=== PATIENT | male | born 1985 | race Caucasian/White ===

== ENCOUNTER 2017-07-04 23:55 | Emergency (ER) | payer OTHER ==
[~2017-07-04] VITALS: Ht 185.4 cm; Wt 68.0 kg
[2017-07-05 00:05] VITALS: BP 119/77; PULSE 55; RESP 16; TEMP 98.2; O2SAT 53; O2SAT 98
--- NOTE | 2017-07-05 00:17 | PD ---
HPI Chief Complaint: Psychiatric Symptoms Time Seen by Provider: 00:16 Travel History International Travel<30 days: No Contact w/Intl Traveler<30days: No Traveled to known affect area: No History of Present Illness HPI 31-year-old male presents emergency department under Ramirez act for psychiatric evaluation. Patient states he has had worsening depression. He has a plan to hang himself like his father did per his report. Reports polysubstance abuse. Denies any acute medical needs. He has no other symptoms to report. [facility] Past Medical History Medical History: Denies Significant Hx Diabetes: No Diminished Hearing: No Influenza Vaccination: Yes Past Surgical History Surgical History: No Previous Surgery Social History Alcohol Use: Yes (OCC) Tobacco Use: Yes (1 PK DAILY) Substance Use: Yes (HEROIN) Allergies-Medications (Allergen,Severity, Reaction): Coded Allergies: No Known Allergies (Verified Allergy, Unknown, 07/05/17) Reported Meds & Prescriptions Reported Meds & Active Scripts Active No Active Prescriptions or Reported Medications Review of Systems Except as stated in HPI: all other systems reviewed are Neg Physical Exam Narrative GENERAL: Thin male patient, tearful but in no acute distress. SKIN: Focused skin assessment warm/dry. HEAD: Atraumatic. Normocephalic. EYES: Pupils equal and round. No scleral icterus. No injection or drainage. ENT: No nasal bleeding or discharge. Mucous membranes pink and moist. NECK: Trachea midline. No JVD. CARDIOVASCULAR: Regular rate and rhythm. No murmur appreciated. RESPIRATORY: No accessory muscle use. Clear to auscultation. Breath sounds equal bilaterally. GASTROINTESTINAL: Abdomen soft, non-tender, nondistended. Hepatic and splenic margins not palpable. MUSCULOSKELETAL: No obvious deformities. No clubbing. No cyanosis. No edema. NEUROLOGICAL: Awake and alert. No obvious cranial nerve deficits. Motor grossly within normal limits. Normal speech. PSYCHIATRIC: Appropriate mood and affect; insight and judgment normal. Data Data Last Documented VS Vital Signs Date Time Temp Pulse Resp B/P (MAP) Pulse Ox O2 Delivery O2 Flow Rate FiO2 07/05/17 04:36 97.6 59 16 127/64 (85) 100 Orders Orders Complete Blood Count With Diff (07/05/17 00:14) Psych Screen (07/05/17 00:14) Drug Screen, Random Urine (07/05/17 00:14) Alcohol (Ethanol) (07/05/17 00:14) Salicylates (Aspirin) (07/05/17 00:14) Tylenol (Acetaminophen) (07/05/17 00:14) Basic Metabolic Panel (Bmp) (07/05/17 00:14) Diet Regular Basic (07/05/17 Breakfast) Labs Laboratory Tests Test 07/05/17 00:10 White Blood Count 7.6 TH/MM3 Red Blood Count 4.73 MIL/MM3 Hemoglobin 13.8 GM/DL Hematocrit 40.9 % Mean Corpuscular Volume 86.4 FL Mean Corpuscular Hemoglobin 29.1 PG Mean Corpuscular Hemoglobin Concent 33.6 % Red Cell Distribution Width 13.3 % Platelet Count 372 TH/MM3 Mean Platelet Volume 7.4 FL Neutrophils (%) (Auto) 68.3 % Lymphocytes (%) (Auto) 22.5 % Monocytes (%) (Auto) 6.6 % Eosinophils (%) (Auto) 2.2 % Basophils (%) (Auto) 0.4 % Neutrophils # (Auto) 5.2 TH/MM3 Lymphocytes # (Auto) 1.7 TH/MM3 Monocytes # (Auto) 0.5 TH/MM3 Eosinophils # (Auto) 0.2 TH/MM3 Basophils # (Auto) 0.0 TH/MM3 CBC Comment DIFF FINAL Differential Comment Blood Urea Nitrogen 22 MG/DL Creatinine 0.82 MG/DL Random Glucose 92 MG/DL Calcium Level 8.9 MG/DL Sodium Level 144 MEQ/L Potassium Level 4.0 MEQ/L Chloride Level 107 MEQ/L Carbon Dioxide Level 31.5 MEQ/L Anion Gap 6 MEQ/L Estimat Glomerular Filtration Rate 109 ML/MIN Salicylates Level 3.3 MG/DL Urine Opiates Screen NEG Acetaminophen Level LESS THAN 2.0 MCG/ML Urine Barbiturates Screen NEG Urine Amphetamines Screen POS Urine Benzodiazepines Screen POS Urine Cocaine Screen NEG Urine Cannabinoids Screen NEG Ethyl Alcohol Level LESS THAN 3 MG/DL MDM Medical Decision Making Medical Screen Exam Complete: Yes Emergency Medical Condition: Yes Medical Record Reviewed: Yes Differential Diagnosis Mood disorder versus personality disorder versus substance abuse versus adjustment reaction Narrative Course 31-year-old male presents emergency department under Ramirez act for psychiatric evaluation. Patient appears without distress. He is cheerful. Vital signs are stable. Lab work is reviewed and without acute concern. Patient is medically cleared to undergo psychiatric screening for further evaluation and disposition. Laboratory Tests Test 07/05/17 00:10 White Blood Count 7.6 TH/MM3 Red Blood Count 4.73 MIL/MM3 Hemoglobin 13.8 GM/DL Hematocrit 40.9 % Mean Corpuscular Volume 86.4 FL Mean Corpuscular Hemoglobin 29.1 PG Mean Corpuscular Hemoglobin Concent 33.6 % Red Cell Distribution Width 13.3 % Platelet Count 372 TH/MM3 Mean Platelet Volume 7.4 FL Neutrophils (%) (Auto) 68.3 % Lymphocytes (%) (Auto) 22.5 % Monocytes (%) (Auto) 6.6 % Eosinophils (%) (Auto) 2.2 % Basophils (%) (Auto) 0.4 % Neutrophils # (Auto) 5.2 TH/MM3 Lymphocytes # (Auto) 1.7 TH/MM3 Monocytes # (Auto) 0.5 TH/MM3 Eosinophils # (Auto) 0.2 TH/MM3 Basophils # (Auto) 0.0 TH/MM3 CBC Comment DIFF FINAL Differential Comment Blood Urea Nitrogen 22 MG/DL Creatinine 0.82 MG/DL Random Glucose 92 MG/DL Calcium Level 8.9 MG/DL Sodium Level 144 MEQ/L Potassium Level 4.0 MEQ/L Chloride Level 107 MEQ/L Carbon Dioxide Level 31.5 MEQ/L Anion Gap 6 MEQ/L Estimat Glomerular Filtration Rate 109 ML/MIN Salicylates Level 3.3 MG/DL Urine Opiates Screen NEG Acetaminophen Level LESS THAN 2.0 MCG/ML Urine Barbiturates Screen NEG Urine Amphetamines Screen POS Urine Benzodiazepines Screen POS Urine Cocaine Screen NEG Urine Cannabinoids Screen NEG Ethyl Alcohol Level LESS THAN 3 MG/DL Diagnosis Primary Impression: Adjustment reaction Qualified Codes: F43.23 - Adjustment disorder with mixed anxiety and depressed mood Additional Impression: Polysubstance abuse Scripts No Active Prescriptions or Reported Meds Condition: Stable Cate Ortega Jul 05, 2017 00:17
[2017-07-05 00:36] LABS: AUTOMATED NEUTROPHIL # 5.2 TH/MM3 (1.8-7.7); BASOPHIL % 0.4 % (0.0-2.0); EOSINOPHIL # 0.2 TH/MM3 (0-0.4); EOSINOPHIL % 2.2 % (0.0-4.0); HEMATOCRIT 40.9 % (39.0-51.0); HEMOGLOBIN 13.8 GM/DL (13.0-17.0); LYMPH % 22.5 % (9.0-44.0); LYMPHOCYTE # 1.7 TH/MM3 (1.0-4.8); MEAN CELL VOLUME 86.4 FL (80.0-100.0); MEAN CORPUSCULAR HEMOGLOBIN 29.1 PG (27.0-34.0); MEAN CORPUSCULAR HGB CONC 33.6 % (32.0-36.0); MEAN PLATELET VOLUME 7.4 FL (7.0-11.0); MONO % 6.6 % (0.0-8.0); MONOCYTE # 0.5 TH/MM3 (0-0.9); NEUT % 68.3 % (16.0-70.0); PLATELET COUNT 372 TH/MM3 (150-450); RED BLOOD COUNT 4.73 MIL/MM3 (4.50-5.90); RED CELL DISTRIBUTION WIDTH 13.3 % (11.6-17.2); WHITE BLOOD COUNT 7.6 TH/MM3 (4.0-11.0)
[2017-07-05 00:51] LABS: BICARBONATE 31.5 MEQ/L (21.0-32.0); BLOOD UREA NITROGEN 22 MG/DL (7-18); CALCIUM 8.9 MG/DL (8.5-10.1); CHLORIDE 107 MEQ/L (98-107); CREATININE 0.82 MG/DL (0.60-1.30); GLOMERULAR FILTRATION RATE 109 ML/MIN (>89); GLUCOSE,RANDOM 92 MG/DL (74-106); SODIUM (NA) 144 MEQ/L (136-145)
[2017-07-05 01:00] LABS: ACETAMINOPHEN LESS THAN 2.0 MCG/ML (10.0-30.0)
[2017-07-05 04:36] VITALS: BP 127/64; PULSE 59; RESP 16; TEMP 97.6; O2SAT 100
[2017-07-05 10:27] VITALS: BP 106/61; PULSE 89; RESP 16; TEMP 98.6; O2SAT 100
--- NOTE | 2017-07-05 17:51 | PD.PSY.CON ---
Provisional Diagnosis Admission Date Date of consultation 07/05/2017 [place] I. 1. Polysubstance abuse [place] II. Deferred History of Present Illness Service Psychiatry Consult Requested By Emergency department Reason for Consult Ramirez act Primary Care Physician No Primary Care Physician HPI Mr. Kilgore is a 31-year-old male with a reported history of substance use issues who presents under a Ramirez act by law enforcement alleging that the patient stated that he wanted to kill himself. Of note, the patient's urine toxicology was positive for amphetamines and benzodiazepines on presentation here. Reviewing the electronic medical record, it appears this is patient's first visit to [facility]. Patient seen and examined. Chart reviewed. Case discussed with nursing staff. Nurse informs me that patient's family has arranged for the patient to enter into a residential chemical dependency treatment program and that this program can come pick the patient up from the emergency room today. There has been no evidence of any suicidality or homicidality since the patient has been under observation in the emergency department. On my examination today, the patient is clinically sober. He is calm and cooperative with examination. He denies any suicidal or homicidal ideation, intent or plan presently and contracts for safety. Patient is enthusiastic about entering chemical dependency treatment and says that he feels "hopeful" regarding this development. I can elicit no depressive or hypomanic/manic symptoms presently. He denies any audiovisual hallucinations. I can elicit no delusional beliefs. There is no evidence of any impairment in reality construction. The remainder of the psychiatric ROS is negative. The patient has no acute physical complaints. He is requesting discharge from the emergency room today so that he might enter into chemical dependency treatment program. Past psychiatric history: The patient reports a history of substance use disorder. He is not currently under the care of a psychiatrist. He denies a history of psychiatric admissions. He denies a history of suicide attempts. He denies a history of violent behavior. Family history: The patient denies any family history of serious mental illness. He notes that his father and brother have/had substance use issues and patient's father completed suicide in the context of his substance use. Chemical dependency history: The patient reports that he previously used to abuse opiates but recently has begun to abuse methamphetamine. His longest sober time is on the order of months. He has participated in residential rehabilitation in the past. Social history: The patient currently lives in his car. He is single. He has a 3-year-old daughter who resides with the patient's mother. He has some college education. He presently has no income. He denies any or legal history. Denies any access to guns or firearms. He is a [employer]. He denies any history of abuse. Review of Systems Except as stated in HPI: all other systems reviewed are Neg Past Family Social History Coded Allergies: No Known Allergies (Verified Allergy, Unknown, 07/05/17) Past Medical History See electronic medical record No Active Prescriptions or Reported Meds Patient's Strengths (min. 2) Agreeable to pursuing chemical dependency treatment. Maintaining basic hygiene. Physical Exam Physical exam completed by ED provider. On my examination today, the patient appears to be in no acute physical distress. No motor abnormalities noted. No signs of intoxication or withdrawal noted. Labs and vitals reviewed: Vital Signs Vital Signs Date Time Temp Pulse Resp B/P (MAP) Pulse Ox O2 Delivery O2 Flow Rate FiO2 07/05/17 10:27 98.6 89 16 106/61 (76) 100 Room Air Lab Results Test 07/05/17 00:10 White Blood Count 7.6 TH/MM3 Red Blood Count 4.73 MIL/MM3 Hemoglobin 13.8 GM/DL Hematocrit 40.9 % Mean Corpuscular Volume 86.4 FL Mean Corpuscular Hemoglobin 29.1 PG Mean Corpuscular Hemoglobin Concent 33.6 % Red Cell Distribution Width 13.3 % Platelet Count 372 TH/MM3 Mean Platelet Volume 7.4 FL Neutrophils (%) (Auto) 68.3 % Lymphocytes (%) (Auto) 22.5 % Monocytes (%) (Auto) 6.6 % Eosinophils (%) (Auto) 2.2 % Basophils (%) (Auto) 0.4 % Neutrophils # (Auto) 5.2 TH/MM3 Lymphocytes # (Auto) 1.7 TH/MM3 Monocytes # (Auto) 0.5 TH/MM3 Eosinophils # (Auto) 0.2 TH/MM3 Basophils # (Auto) 0.0 TH/MM3 CBC Comment DIFF FINAL Differential Comment Blood Urea Nitrogen 22 MG/DL Creatinine 0.82 MG/DL Random Glucose 92 MG/DL Calcium Level 8.9 MG/DL Sodium Level 144 MEQ/L Potassium Level 4.0 MEQ/L Chloride Level 107 MEQ/L Carbon Dioxide Level 31.5 MEQ/L Anion Gap 6 MEQ/L Estimat Glomerular Filtration Rate 109 ML/MIN Salicylates Level 3.3 MG/DL Urine Opiates Screen NEG Acetaminophen Level LESS THAN 2.0 MCG/ML Urine Barbiturates Screen NEG Urine Amphetamines Screen POS Urine Benzodiazepines Screen POS Urine Cocaine Screen NEG Urine Cannabinoids Screen NEG Ethyl Alcohol Level LESS THAN 3 MG/DL Mental Status Examination Appearance: Appropriate Consciousness: Alert Orientation: x4 Motor Activity: Other (No motor abnormalities noted. No signs of withdrawal noted.) Speech: Unremarkable Language: Adequate Fund of Knowledge: Adequate Attention and Concentration: Adequate Memory: Unremarkable Mood: Appropriate Affect: Appropriate Thought Process & Associations: Intact, Logical, Goal directed, Linear Thought Content: Appropriate Hallucination Type: None Delusion Type: None Suicidal Ideation: No Suicidal Plan: No Suicidal Intention: No Homicidal Ideation: No Homicidal Plan: No Homicidal Intention: No Insight: Adequate Judgment: Adequate Assessment & Plan Problem List: (1) Polysubstance abuse ICD Codes: F19.10 - Other psychoactive substance abuse, uncomplicated Status: Acute Assessment & Plan 31-year-old male with psychiatric history as detailed above who presents under a Ramirez act. On my examination today, the patient is clinically sober. He denies any suicidal or homicidal ideation. There is no evidence of unstable mental illness has defined under the Ramirez act in this patient at this time. There is no evidence of significant self-care deficit from mental illness has defined under the Ramirez act. The patient does seem to have substance use issues and plans to enter into chemical dependency treatment program today. Synthesizing this information and based on the available evidence, I board filler that the patient does not presently meet the Ramirez act criteria. I have lifted the Ramirez act. I have supported the patient in his desire for sobriety and encouraged full participation in the drug treatment program. I have counseled the patient regarding warning signs for need to return to the psychiatric emergency room as part of a general safety plan. Patient is psychiatrically clear for discharge from the ED and will be transported to residential chemical dependency treatment program today. Thank you very much for this consultation. Wale Dietrich MD Jul 05, 2017 17:51
--- NOTE | 2017-07-05 17:52 | PD ---
Physical Exam Time Seen by Provider: 17:[address] Dawn has evaluated the patient, lifted the Ramirez act and cleared the patient for discharge. Data Data Last Documented VS Vital Signs Date Time Temp Pulse Resp B/P (MAP) Pulse Ox O2 Delivery O2 Flow Rate FiO2 07/05/17 10:27 98.6 89 16 106/61 (76) 100 Room Air Orders Orders Complete Blood Count With Diff (07/05/17 00:14) Psych Screen (07/05/17 00:14) Drug Screen, Random Urine (07/05/17 00:14) Alcohol (Ethanol) (07/05/17 00:14) Salicylates (Aspirin) (07/05/17 00:14) Tylenol (Acetaminophen) (07/05/17 00:14) Basic Metabolic Panel (Bmp) (07/05/17 00:14) Diet Regular Basic (07/05/17 Breakfast) Diet Regular Basic (07/05/17 Lunch) Diet Regular Basic (07/05/17 Dinner) Labs Laboratory Tests Test 07/05/17 00:10 White Blood Count 7.6 TH/MM3 Red Blood Count 4.73 MIL/MM3 Hemoglobin 13.8 GM/DL Hematocrit 40.9 % Mean Corpuscular Volume 86.4 FL Mean Corpuscular Hemoglobin 29.1 PG Mean Corpuscular Hemoglobin Concent 33.6 % Red Cell Distribution Width 13.3 % Platelet Count 372 TH/MM3 Mean Platelet Volume 7.4 FL Neutrophils (%) (Auto) 68.3 % Lymphocytes (%) (Auto) 22.5 % Monocytes (%) (Auto) 6.6 % Eosinophils (%) (Auto) 2.2 % Basophils (%) (Auto) 0.4 % Neutrophils # (Auto) 5.2 TH/MM3 Lymphocytes # (Auto) 1.7 TH/MM3 Monocytes # (Auto) 0.5 TH/MM3 Eosinophils # (Auto) 0.2 TH/MM3 Basophils # (Auto) 0.0 TH/MM3 CBC Comment DIFF FINAL Differential Comment Blood Urea Nitrogen 22 MG/DL Creatinine 0.82 MG/DL Random Glucose 92 MG/DL Calcium Level 8.9 MG/DL Sodium Level 144 MEQ/L Potassium Level 4.0 MEQ/L Chloride Level 107 MEQ/L Carbon Dioxide Level 31.5 MEQ/L Anion Gap 6 MEQ/L Estimat Glomerular Filtration Rate 109 ML/MIN Salicylates Level 3.3 MG/DL Urine Opiates Screen NEG Acetaminophen Level LESS THAN 2.0 MCG/ML Urine Barbiturates Screen NEG Urine Amphetamines Screen POS Urine Benzodiazepines Screen POS Urine Cocaine Screen NEG Urine Cannabinoids Screen NEG Ethyl Alcohol Level LESS THAN 3 MG/DL MDM Supervised Visit with NICO: No Narrative Course Dr. Dawn has evaluated the patient, lifted the Ramirez act and cleared the patient for discharge. Patient contracts safety. Denies suicidal or homicidal ideations. Patient will be provided community resource packet to [facility] for follow-up. Has friends and family for support. Patient was medically cleared by alternate provider prior to psych screening. Patient has been evaluated by psychiatry and and is now cleared for discharge. Diagnosis Primary Impression: Adjustment reaction Qualified Codes: F43.23 - Adjustment disorder with mixed anxiety and depressed mood Additional Impression: Polysubstance abuse Referrals: [facility]ER (Out patient) [facility] Primary Care Physician Psychiatrist [facility] Patient Instructions: General Instructions, Mood Disorders (ED), Polysubstance Abuse (ED) Additional Instruction: Contract safety to your self and others Follow-up with psychiatry Follow-up with primary care provider Follow-up with Flo Lopez Return to the emergency department immediately with worsening of symptoms Med/Other Pt SpecificInfo: No Change to Meds, No Meds Exist/No RX given Scripts No Active Prescriptions or Reported Meds Disposition: 01 DISCHARGE HOME Condition: Stable Ene Vigil Jul 05, 2017 17:52
[2017-07-05 18:17] VITALS: BP 116/72; PULSE 65; RESP 16; TEMP 98.7; O2SAT 100
== END 2017-07-05 21:41 | disposition home or self-care (01) ==
LOC: NEPJ 23:55
DX: F43.23 Adjustment disorder with mixed anxiety and depressed mood (principal); F19.10 Other psychoactive substance abuse, uncomplicated; Z59.0 Homelessness
CPT/HCPCS: 80048; 80307; 85025; 99284